=== PATIENT | male | born 1940 | race Caucasian/White ===

== ENCOUNTER → 2017-06-29 06:03 | Day surgery (SDC) | payer BC ==
--- NOTE | 2017-06-15 08:38 | HP ---
CC: Dr. Nusrat Pierec * HISTORY AND PHYSICAL: DATE OF PLANNED ADMISSION AND SURGERY: 06/29/17 HISTORY OF PRESENT ILLNESS: Mr. Min is a 77-year-old white male, who is admitted with a bladder mass for cystoscopy, transurethral resection, and possible bilateral ureteral stent placement. Mr. Min had undergone a radical prostatectomy for prostate carcinoma about 15 years ago. He has done very well and has had no recurrent disease. He also had a good urinary stream and no voiding problems. He recently developed symptoms of overactive bladder of urgency, frequency, and episodes of urge urinary incontinence. There was no associated burning on urination, hematuria, or suprapubic pain. He did not have any renal symptoms. He had a renal and a bladder ultrasound, which showed normal kidneys and there was a mass measuring about 2 cm noted in the base of the bladder. The patient was evaluated in the office and had a cystoscopy, which showed a submucosal mass arising in the mid trigone impinging on both ureteral orifices. No other bladder lesions were seen. Because of the above finding, the patient is admitted for a transurethral resection of the bladder lesion. Because of the proximity of the lesion to the ureteral orifices, the patient might require bilateral ureteral stent placement. PAST MEDICAL HISTORY AND SYSTEM REVIEW: He is in very good health. He denies any cardiac or pulmonary diseases. He is hypertensive, on lisinopril-HCTZ. He has hypothyroidism, on replacement. He takes 1 baby aspirin per day. He has hyperlipidemia, on simvastatin. ALLERGIES: He denies any allergies to medications. PHYSICAL EXAMINATION GENERAL: Pleasant, healthy, and fit-looking white male, who looks good for his age. VITAL SIGNS: Blood pressure 120/80, pulse 74. LUNGS: Clear. HEART: Regular and rhythmic. No murmurs. ABDOMEN: Soft. No masses, no tenderness, and no CVA tenderness. EXTERNAL GENITALIA: Normal. IMPRESSION: 1. History of prostate carcinoma with good result of radical retropubic prostatectomy and no evidence of recurrent disease. 2. New onset of urge urinary incontinence with a 2-cm submucosal mass in the mid trigone of the urinary bladder. PLAN: 1. CT urogram for better evaluation of the urinary bladder mass. This be scheduled pre operatively. 2. Transurethral resection of the above lesion with possible placement of bilateral ureteral stents. 3. The patient is started on VESIcare 5 mg daily to help with urge incontinence. 4. Additional treatments might be needed depending upon the result of the pathology. [id number]/[facility] #: [id number] [facility]
[~2017-06-29 06:03] MED LIST: Buffered Lidocaine 0.9% SYRIN* 5 ML/SYR SYRINGE INTRADERM ONE; Buffered Lidocaine 0.9% SYRIN* 5 ML/SYR SYRINGE ONE; Dexamethasone IV* 4 MG/ML 1 ML (4 MG) IV SLOW PU ONE; Dexamethasone IV* 4 MG/ML 1 ML (4 MG) ONE; DiMENhydriNATE IV* 50 MG/ML VIAL IV PUSH PRN; EPHEDrine (Pressors)* 50 MG/ML VIAL ONE; Famotidine IV* 10 MG/ML 2 ML (20 mg) IV ONE; Famotidine IV* 10 MG/ML 2 ML (20 mg) ONE; Iohexol 180 (CONTRAST) 10 ML SDV IV ONE; Lidocaine 2% PF * 5 ML VIAL ONE; Ondansetron INJ* 2 MG/ML VIAL ONE; Propofol* 10 MG/ML 20 ML BTL IV PUSH ONE; cefTRIAXone(*) 2 GM ADDV.VIAL IVPB ONE; fentaNYL* 50 MCG/ML 2 ML VIAL (100 MCG VIAL) IV PRN; fentaNYL* 50 MCG/ML 2 ML VIAL (100 MCG VIAL) ONE
--- NOTE | 2017-06-29 10:02 | OP ---
CC: Nusrat Pierce MD* DATE OF OPERATION: 06/29/17 - [facility] DATE OF : 36 SURGEON: Jamal Barillas MD. ANESTHESIOLOGIST: Francisco Hawthorne MD. ANESTHESIA: General. PRE-OP DIAGNOSIS: Bladder mass (mid trigone, 2.5 cm). POST-OP DIAGNOSES: 1. Bladder mass (mid trigone, 2.5 cm). 2. Pending pathology. OPERATIVE PROCEDURE: 1. Cystoscopy. 2. Transurethral resection of bladder lesion of mid trigone, 2.5 cm. INDICATION FOR PROCEDURE: Mr. Min is a 77-year-old white male who had undergone a radical retropubic prostatectomy for prostate carcinoma 15 years ago. He has done very well and has had no evidence of recurrent disease. His most recent PSA 6 months ago was 0.05. He was recently worked up because of new onset of symptoms of overactive bladder and had a bladder ultrasound which showed a 2 cm solid mass in the base of the bladder. Office cystoscopy showed an elevated lesion in the mid trigone. It was submucosal and adjacent to the ureteral orifices. The rest of the bladder wall looked normal. CT urogram showed no other lesions. The bladder lesion did not seem to be extending outside the bladder wall. Because of the above history and finding, the above procedure was advised and accepted. PATHOLOGY AT CYSTOSCOPY: The penile and bulbar urethrae looked normal. No strictures were noted. The external sphincter looked normal. 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 The bladder neck was open without any contracture or lesions. A 2.5 cm submucosal solid mass was noted in the mid trigone. The ureteral orifices were identified adjacent to the lesion. The rest of the bladder wall looked normal. No other lesions were noted. No calculi or diverticula. Upon resection, the tumor was solid, nonvascular. 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 At the completion of the resection, the ureteral orifices were intact. DESCRIPTION OF PROCEDURE: After successful general anesthesia, the patient was placed in the lithotomy position and was prepped and draped for cystoscopy. Cystoscopy was performed. The bladder was carefully inspected and the above findings were noted. The resectoscope was then introduced inside the bladder. The meatus had to be dilated to allow introduction of the resectoscope. Water was used for irrigation and the inflow and outflow were adjusted to avoid overdistention of the bladder. The bladder lesion was then resected down to its base. The resection was completed without impinging on the ureteral orifices. The bleeders were electrocoagulated and controlled. At the end of the procedure, there were no gross residual lesion noted. The ureteral orifices were free and clear efflux was seen coming from both of them. Decision was made not to place ureteral stents. The bladder was irrigated and the resected tissue was evacuated and sent for pathology. After a final inspection which confirmed good hemostasis and free ureteral orifices, the resectoscope was removed and then an 18-English Odell catheter was passed inside the bladder and the balloon inflated with 10 cc of water. The patient tolerated the procedure well and left the operating room in good condition. [id number]/[facility] #: [id number]
[2017-06-29 10:03] VITALS: BP 140/78
== END | disposition home or self-care (01) ==
LOC: OR 06:03
PROVIDERS: ATTEND Urology
DX: N32.9 Bladder disorder, unspecified (principal); Z85.46 Personal history of malignant neoplasm of prostate
CPT/HCPCS: 88307; J0696; J1100; J2405; J2704; J3010

== ENCOUNTER 2023-05-25 11:33 | Observation (INO) ==
[2023-05-25 11:54] LABS: ABS Basophils 0.1 10^3/uL (0.0-0.1); ABS Eosinophils 0.3 10^3/uL (0.0-0.5); ABS Lymphocytes 1.4 10^3/uL (1.0-4.8); ABS Monocytes 0.9 10^3/uL (0.0-1.1); ABS Neutrophils 5.8 10^3/uL (1.5-7.6); Eosinophil % 3.3 %; Hematocrit 41.3 % (38-53); Lymphocyte % 16.7 %; Mean Corpuscular Hemoglobin 31.6 pg (27-33); Mean Corpuscular Hgb Conc 33.9 g/dL (31-36); Mean Corpuscular Volume 93.2 fL (80-97); Mean Platelet Volume 7.9 fL (7.5-11.2); Platelet Count 304 10^3/uL (150-450); Red Blood Count 4.43 10^6/uL (4.06-5.63); Red Cell Distribution Width 13.8 % (12-17); White Blood Count 8.5 10^3/uL (3.6-10.2)
[2023-05-25] MEDS ORDERED: Iodixanol 320 (CONTRAST) 100 ML SDV IV ONE (11:57)
[2023-05-25 12:18] LABS: Activated Partial Thrombo Time 29.8 seconds (26.0-38.0); INR 1.02 (0.83-1.13)
[2023-05-25 12:19] LABS: Albumin 4.4 g/dL (3.2-5.2); Albumin/Globulin Ratio 1.5 (1-3); Calcium 9.6 mg/dL (8.6-10.3); Creatinine, Serum 1.16 mg/dL (0.67-1.17); Globulin 2.9 g/dL (2-4); HDL Cholesterol 49.8 mg/dL; Indirect Bilirubin 0.4 mg/dL (0.3-1.0); Potassium 3.7 mmol/L (3.5-5.0); Total Bilirubin 0.4 mg/dL (0.2-1.0); Total Protein 7.3 g/dL (6.4-8.9); eGFR CKD-EPI 62.1 (>60)
[2023-05-25] MEDS ORDERED: Enoxaparin 40 MG/0.4 ML SYR SUBCUT SCH (14:00)
[2023-05-25 15:24] LABS: Urine Appearance Clear; Urine Bilirubin Negative (Negative); Urine Blood Negative (Negative); Urine Color Yellow; Urine Glucose Negative (Negative); Urine Ketones Negative (Negative); Urine Nitrite Negative (Negative); Urine Protein Negative (Negative); Urine Specific Gravity 1.043 (1.002-1.030); Urine Urobilinogen Negative (Negative)
[2023-05-25] MEDS ORDERED: Latanoprost 0.005% 2.5 ml BTL RIGHT EYE SCH (21:00)
[2023-05-26 04:01] LABS: Magnesium 2.1 mg/dL (1.9-2.7)
[2023-05-26 04:34] LABS: TSH Ultra Thyroid Stim Horm 3.82 mcIU/mL (0.34-5.60)
[2023-05-26 06:43] LABS: Calcium 9.4 mg/dL (8.6-10.3); Creatinine, Serum 1.09 mg/dL (0.67-1.17); Magnesium 2.1 mg/dL (1.9-2.7); Potassium 3.7 mmol/L (3.5-5.0); eGFR CKD-EPI 66.9 (>60)
[2023-05-26] MEDS ORDERED: Aspirin EC 81 mg TAB.EC (enteric coated) PO SCH (09:00)
[2023-05-26 13:35] VITALS: BP 128/71
== END 2023-05-26 12:01 | disposition home or self-care (01) ==
LOC: ED 11:33 → EDHOLD 11:33 → MEDTELE 15:00
PROVIDERS: ADMIT Student in an Organized Health Care Education/Training Program; ATTEND Student in an Organized Health Care Education/Training Program